=== PATIENT | male | born 1970 ===

== ENCOUNTER 2018-04-09 18:32 | Emergency (ER) | payer OTHER ==
[2018-04-09 18:58] VITALS: BP 139/82; PULSE 70; RESP 20; TEMP 98.8; O2SAT 97
[2018-04-09] MEDS ORDERED: Tetanus/Diphtheria Toxoids 0.5 ml Syringe IM ONE ×2 (19:20→19:31)
[2018-04-09] MEDS ORDERED: Lidocaine Hydrochloride 5 ML INJ ONE (19:21)
--- NOTE | 2018-04-09 19:51 | C.PDOC ---
History Of Present Illness 47 y/o male presents to the ER complaining of laceration to left hand sustained with a knife [employer]. Patient states that he is right hand dominant. Denies having any weakness and numbness to the left hand. Of note, patient does not remember when he had his last tetanus vaccination. Pt is right hand dominant Time Seen by Provider: 04/09/18 19:13 Chief Complaint (Nursing): Abnormal Skin Integrity History Per: Patient History/Exam Limitations: no limitations Onset/Duration Of Symptoms: Hrs Current Symptoms Are (Timing): Still Present Severity: Moderate Past Medical History Reviewed: Historical Data, Nursing Documentation, Vital Signs Vital Signs: Last Vital Signs Temp 98.8 F 04/09/18 18:53 Pulse 70 04/09/18 18:53 Resp 20 04/09/18 18:53 BP 139/82 04/09/18 18:53 Pulse Ox 97 04/09/18 18:53 - Medical History PMH: No Chronic Diseases Surgical History: No Surg Hx Family History: States: No Known Family Hx - Social History Hx Alcohol Use: Yes Hx Substance Use: Yes - Immunization History Hx Tetanus Toxoid Vaccination: No Hx Influenza Vaccination: No Hx Pneumococcal Vaccination: No Review Of Systems Except As Marked, All Systems Reviewed And Found Negative. Skin: Positive for: Other (laceration to left hand) Neurological: Negative for: Weakness, Numbness Physical Exam - Physical Exam Appears: Non-toxic, No Acute Distress Skin: Normal Color, Warm, Dry, Other (1.75 cm linear laceration to hypothenar eminence of left hand, 0.25 cm laceration to the lateral corner of left hand) Head: Atraumatic, Normacephalic Eye(s): bilateral: Normal Inspection Nose: Normal Oral Mucosa: Moist Neck: Supple Chest: Symmetrical Extremity: Normal ROM, No Tenderness, Capillary Refill (< 2 seconds), No Swelling Pulses: Left Radial: Normal, Right Radial: Normal Neurological/Psych: Oriented x3, Normal Speech, Normal Motor (left hand), Normal Sensation (left hand) ED Course And Treatment O2 Sat by Pulse Oximetry: 97 (RA) Pulse Ox Interpretation: Normal Progress Note: Tetanus vaccination administered. Laceration repair has been performed successfully. Patient tolerated well. Laceration - Laceration Repair Left Hand Wound Length (In cm): 2 cm Description Of Wound: Linear Wound Cleansed With: Betadine, Sterile Saline Anesthesia: Lidocaine 1% Wound Examination: Irrigated With Saline, No FB With Wound Exploration, No Tendon Injury With Wound Exploration Wound Closure: Suture (x 4) Suture Technique And Material Used: Nylon (4-0 Nylon) Wound Complexity: Simple (toleratd well, dressing applied) Disposition Counseled Patient/Family Regarding: Diagnosis, Need For Followup - Disposition Disposition: HOME/ ROUTINE Disposition Time: 19:43 Condition: STABLE Additional Instructions: Please follow up with PMD in 2 days Follow wound care instructions Suture removal in 8-10 days Return to ER if worse Instructions: Laceration Repair With Stitches (DC) Forms: [employer] ([employer] [place]) - Clinical Impression Clinical Impression: Hand laceration - PA / BEHAVIORAL HEALTH COUNSELOR / Resident Statement MD/DO has reviewed & agrees with the documentation as recorded. - Scribe Statement The provider has reviewed the documentation as recorded by the Maxibe Giorgio Jackson Provider Attestation All medical record entries made by the Scribe were at my direction and personally dictated by me. I have reviewed the chart and agree that the record accurately reflects my personal performance of the history, physical exam, medical decision making, and the department course for this patient. I have also personally directed, reviewed, and agree with the discharge instructions and disposition.
== END 2018-04-09 19:58 | disposition home or self-care (01) ==
LOC: C.ER 18:32
DX: S61.412A Laceration without foreign body of left hand, initial encounter (principal); W26.0XXA Contact with knife, initial encounter